=== PATIENT | female | born 1960 | race Caucasian/White ===

== ENCOUNTER 2022-12-10 14:49 | Inpatient (IN) | payer OTHER ==
[~2022-12-10] VITALS: Ht 162.6 cm; Wt 56.7 kg
[2022-12-10] VITALS (7 sets, daily range): BP systolic 138–171; BP diastolic 71–83
[2022-12-10] MEDS: NACL 0.9% 1,000 ML IV SCH (00:30)
[2022-12-10] MEDS ORDERED: NACL 0.9% 1,000 ML IV ONE ×2 (15:10→16:20)
[2022-12-10] MEDS ORDERED: PANTOPRAZOLE 40 MG INJ VIAL IVP ONE (15:10)
[2022-12-10 15:34] LABS: BASOPHILS # (AUTO) 0.1 K/uL (0.00-0.22); BASOPHILS % (AUTO) 0.9 % (0.0-2.0); EOSINOPHILS # (AUTO) 0.3 K/uL (0-0.4); EOSINOPHILS % (AUTO) 2.5 % (0.0-4.0); HEMATOCRIT 21.6 % (36-48); HEMOGLOBIN 7.3 g/dL (12.0-16.0); LYMPHOCYTES % (AUTO) 19.6 % (20.5-51.1); MEAN CORPUSCULAR HEMOGLOBIN 30 pg (27-31); MEAN CORPUSCULAR HGB CONC 34 g/dL (33-37); MEAN CORPUSCULAR VOLUME 88.5 fL (80-94); MONOCYTES # (AUTO) 0.6 K/uL (0.8-1.0); NEUTROPHILS # (AUTO) 7.4 K/uL (1.8-7.7); PLATELET COUNT (AUTO) 77 K/uL (140-450); RED BLOOD CELL COUNT(AUTO) 2.44 MIL/uL (4.20-5.40); RED CELL DISTRIBUTION WIDTH 15.6 % (11.6-13.7); WHITE BLOOD COUNT (AUTO) 10.4 K/uL (4.8-10.8)
[2022-12-10] MEDS ORDERED: ONDANSETRON 4 MG/2 ML VIAL IVP ONE (16:20)
[2022-12-10 16:38] LABS: ALBUMIN 2.6 g/dL (3.4-5.0); ANION GAP 16.1 (8-16); CARBON DIOXIDE 21.6 mmol/L (21-32); CREATININE 0.9 mg/dL (0.6-1.3); POTASSIUM 3.7 mmol/L (3.5-5.1); TOTAL BILIRUBIN 0.3 mg/dL (0.0-1.0)
--- NOTE | 2022-12-10 16:46 | NUR ---
XRAY AT BEDSIDE
--- NOTE | 2022-12-10 17:00 | NUR ---
DR GARCIA AT TO DISCUSS PLAN OF CARE, TEST RESULT, I ADMISSION AND NEEDS OF BLOOD TRANSFUSION, PT VERB GOOD UNDERSTANDING AGREED AGREED TO PROCEED
--- NOTE | 2022-12-10 17:00 | NUR ---
RISK AND BENEFITS DISCUSS BY MD WITH PT, BVERB GOOD UNDERSTANDING AGREED TO PROCEED
--- NOTE | 2022-12-10 17:25 | NUR ---
AGREED TO CONSENT FOR BLOOD TRANSFUSION. MADE AWARE OF COMPLICATIONS THAT MAY ARISE. FAMILY "SON" HAS BEEN CONTACTED. VITALS WITHIN NORMAL LIMITS
--- NOTE | 2022-12-10 17:30 | NUR ---
BLOOD CHECKED WITH SHANNAN HINES, S/SX TRANSFUSION REACTION DISCUSSED, ADVISED PT TO REPORT ANY UNUSUAL SX WITH TRANSFUSION, PT VERB UNDERSTANDING.
[2022-12-10] MEDS ORDERED: ACETAMINOPHEN 325 MG TAB PO PRN (17:40)
[2022-12-10] MEDS ORDERED: HYDROcodone/APAP 7.5/325 MG 1 TAB PO PRN (17:40)
[2022-12-10] MEDS ORDERED: ZOLPIDEM 5 MG TAB PO PRN (17:40)
[2022-12-10] MEDS ORDERED: DOCUSATE SODIUM 100 MG GELCAP PO PRN (17:40)
[2022-12-10] MEDS ORDERED: POTASSIUM CHLORIDE 10 MEQ TABER PO PRN (17:40)
[2022-12-10] MEDS ORDERED: guaiFENesin DM 200/20 MG-10 ML 10 ML UDC PO PRN (17:40)
[2022-12-10 18:03] LABS: AMYLASE 49 U/L (25-115)
--- NOTE | 2022-12-10 18:13 | NUR ---
GAMRSACG=[id number], DR GARCIA MADE AWARE, NO NEW ORDER RECEIVED
--- NOTE | 2022-12-10 18:20 | NUR ---
UPON ARRIVAL PT HAD ONE BLOODY STOOL@1500. PREPARATION OF BLOOD TRANSFUSION WAS BEING DONE AND PT HAD ANOTHER BLOODY STOOL@ 1600 AND ANOTHER AT AROUND@1730
--- NOTE | 2022-12-10 18:21 | NUR ---
PER PATIENT, TAKES NO MEDICATION. MED REC COMPLETE.
--- NOTE | 2022-12-10 18:50 | NUR ---
Dr. Sosa called ICU and instructed RN to inform warehouse shipping receiving clerk to place pt. on in OR schedule for ENDOSCOPY at 0730 am 12-11-22. Also, RN needs to have pt. sign informed consent for endoscopy in AM. This RN called warehouse shipping receiving clerk Ever and informed him of the above. He will schedule pt. for OR in am. Report endorsed to night RN, sprinkler tender Candace
--- NOTE | 2022-12-10 19:00 | NUR ---
Received call from Dr. Alford. requested stat ECG and stat Troponin. He also ordered Dr. Hanson notified about cardiology consultation and for ECG be sent to Dr. Hanson.
--- NOTE | 2022-12-10 19:05 | NUR ---
PT TRANSFERED TO ICU BED 1. TERESITA HEATH CALLED REPORT TO TERESITA CAVANAUGH
--- NOTE | 2022-12-10 19:14 | NUR ---
1913 Dr. Hanson sent consultation information, reported current troponin level, and texted picture of ECG. Done via secure text message.
--- NOTE | 2022-12-10 19:55 | NUR ---
I CALLED DR. HOOKS AND REPORTED PT. IS HERE IN ICU. WHEN I MENTIONED THAT PT. IS COVID POSITIVE, HE ASKED AGAIN IF PT. IS COVID POSITIVE AND I CONFIRMED. I ASKED IF WE CAN PLACE A VERA CATHETER AND HE'S OKAY WITH IT.
--- NOTE | 2022-12-10 20:33 | NUR ---
PLACED VERA CATHETER 16F PER MD ORDERED AND PT. TOLERATED PROCEDURE WELL. URINE OUTPUT CLEAR YELLOW COLOR.
[2022-12-10 21:41] LABS: APPEARANCE,URINE CLEAR (CLEAR); BILIRUBIN,URINE NEGATIVE (NEGATIVE); BLOOD, URINE NEGATIVE (NEGATIVE); COLOR,URINE YELLOW (YELLOW); LEUKOCYTE ESTERASE ,URINE NEGATIVE (NEGATIVE); NITRITE, URINE NEGATIVE (NEGATIVE); UGLUCOSE NEGATIVE (NEGATIVE)
[2022-12-10] MEDS ORDERED: OCTREOTIDE ACETATE 1.25 MG in NACL 0.9% 250 ML IV SCH (21:55)
[2022-12-10] MEDS ORDERED: OCTREOTIDE ACETATE 1000 MCG/5 ML VIAL ONE (22:12)
[2022-12-10] MEDS: ONDANSETRON 4 MG/2 ML VIAL IM/IVP PRN (22:34)
[2022-12-11] VITALS (20 sets, daily range): BP systolic 133–175; BP diastolic 61–86
--- NOTE | 2022-12-11 01:43 | NUR ---
1900--RECEIVED FROM ER PER JOYCE ACCOMPANIED BY ER NURSE. MADE COMFORTABLE IN BED AND ATTACHED TO BEDSIDE MONITORS, AFEBRILE AND NO RESP DISTRESS . ON ROOM AIR AND SATURATION IS 100 % . BED IN LOW POSITION , COVD PRECAUTION
--- NOTE | 2022-12-11 01:51 | NUR ---
2000- VOMTIN BLOODY SECRETIONS IN SMALL AMOUNT AND HAVING BLLODY LIQUIDY STOOL IN SMALL AMT.
--- NOTE | 2022-12-11 01:53 | NUR ---
2030 - IST UNIT OF PRBC TRANSFUSING WITHOUT BL0OD REACTION
--- NOTE | 2022-12-11 01:55 | NUR ---
2100- VOMITING BLOODY SECRETIONS . ORAL Care done
--- NOTE | 2022-12-11 01:57 | NUR ---
2114- 2nd unit PRBC is transfusing without reaction
--- NOTE | 2022-12-11 02:14 | NUR ---
2229-DR. PRINGLE WAS VERIFIED ABOUT STARTING SANDOSTATIN DRIP ORDERED EARLIER BY JIMMIE OWUSU TO MORNING CHARGE NURSE BUT WAS NOT ORDERED BY AM SHIFT AND SHE ORDERED TO GIVE IT AND CARRIED OUT AD STARTED MCG/HR AT 5 ML /HR
--- NOTE | 2022-12-11 02:19 | NUR ---
0000- LESS BLOODY STOOLS AND VOMITING
--- NOTE | 2022-12-11 02:21 | NUR ---
0200.- NO C/O OF ABDOMIAL PAIN
--- NOTE | 2022-12-11 03:05 | NUR ---
COVID 19 ISOLATION MAINTAINED AND PT IS ASLEEP.
--- NOTE | 2022-12-11 03:29 | NUR ---
2230=(GI DOCTOR) WAS INFORMED TO EXPLAIN TO PT THE PROCEDURE BEFORE SHE SIGN THE CONSENT FOR UPPER ENDOSCOPY
--- NOTE | 2022-12-11 04:29 | NUR ---
0400=ON STAND C/O NAUSEA
[2022-12-11] MEDS: ONDANSETRON 4 MG/2 ML VIAL IM/IVP PRN (04:36)
--- NOTE | 2022-12-11 04:48 | NUR ---
0436-VOMITED HUGE AMT. . . OF BLOODY SECRETIONS WITH BLOOD CLOTS AND ZOFRAN 4 MG IVP GIVEN
[2022-12-11 05:06] LABS: BASOPHILS % (AUTO) 0.3 % (0.0-2.0); EOSINOPHILS % (AUTO) 0.1 % (0.0-4.0); HEMATOCRIT 25.3 % (36-48); HEMOGLOBIN 8.5 g/dL (12.0-16.0); LYMPHOCYTES # (AUTO) 2.4 K/uL (2.5-16.5); LYMPHOCYTES % (AUTO) 17.2 % (20.5-51.1); MEAN CORPUSCULAR HEMOGLOBIN 30 pg (27-31); MEAN CORPUSCULAR HGB CONC 34 g/dL (33-37); MONOCYTES # (AUTO) 0.7 K/uL (0.8-1.0); NEUTROPHILS % (AUTO) 77.4 % (42.2-75.2); PLATELET COUNT (AUTO) 95 K/uL (140-450); RED BLOOD CELL COUNT(AUTO) 2.87 MIL/uL (4.20-5.40); RED CELL DISTRIBUTION WIDTH 15.5 % (11.6-13.7); WHITE BLOOD COUNT (AUTO) 14.2 K/uL (4.8-10.8)
[2022-12-11 05:20] LABS: MAGNESIUM 1.8 mg/dL (1.8-2.4); PHOSPHORUS 4.7 mg/dL (2.5-4.9)
--- NOTE | 2022-12-11 05:44 | NUR ---
0535- DR MURDOCK WAS UPDATED WITH PTS. CONDITION AND REMINDED HIM OF OBTAINING CONSENT AFTER HE EXPLAINED THE PROCEDURE P
[2022-12-11 06:06] LABS: ANION GAP 18.5 (8-16); CARBON DIOXIDE 18.1 mmol/L (21-32); CREATININE 0.9 mg/dL (0.6-1.3); POTASSIUM 4.6 mmol/L (3.5-5.1)
--- NOTE | 2022-12-11 07:18 | NUR ---
ENDORSED PT TO DAYSHIFT NURSES SARIKA RN AND MARK RN FOR CONTINUITY OF CARE.
[2022-12-11] MEDS ORDERED: fentaNYL citrate 0.05 MG/ML VIAL ONE ×2 (07:24→15:44)
[2022-12-11] MEDS ORDERED: MIDAZOLAM 2 MG/2 ML VIAL ONE ×4 (07:24→16:24)
--- NOTE | 2022-12-11 07:30 | NUR ---
Received reposrt from Guido LO patient is diagnosed for acute GI bleed pt is alert and oriented x 4 verbally reposnsive able to move all ext without difficulty c/o of pain 3/10 abdomen for EGD procedure at 0730 keep NPO pt is SR oin the monitor 96HR on room air 100% O2 SAT BP 151/66 PT FOUND TO HAVE VOMITED MODERATE AMOUT OF BLOOD WITH CLOTS AND HAVE LARGE AMOUNT OF BLOODY BM WITH CLOTS PT ON IVF NS AT 60 ML/HR AND OCREATIDE AT 5ML/HR PT HAS VERA CATHETER DAIING YELLOW URINE SAFETY PRECAUTION APPLIED AND CONITNUE MONITORING
[2022-12-11] MEDS ORDERED: FLUMAZENIL 0.5 MG/5 ML VIAL IVP ONE ×2 (07:34→15:44)
[2022-12-11] MEDS ORDERED: NALOXONE 0.4 MG/ML VIAL ONE ×2 (07:35→15:43)
--- NOTE | 2022-12-11 07:40 | NUR ---
PER GI NURSES AND DR. MURDOCK, ENDOSCOPY PROCEDURE WILL BE POSTPONED UNTIL THIS AFTERNOON.
--- NOTE | 2022-12-11 08:06 | NUR ---
PT. WITH LOW JEN SCALE AT MODERATE TO HIGH RISK, CONTINUE TO FOLLOW PRESSURE INJURY PREVENTION INTERVENTIONS. -POSITIONING: TURN AND REPOSITION PATIENT Q 2H OR SOONER USE PILLOWS TO KEEP BONY PROMINENCES FROM DIRECT CONTACT WITH SURFACES USE REPOSITIONING WEDGES TO PROVIDE 30-DEGREE ANGLE FOR SIDE LYING POSITIONS OFFLOADING OR FOAM DRESSING TO ALL TUBING TO PREVENT MEDICAL DEVICES RELATED PRESSURE INJURY -RE-EVALUATING AND MANAGING INCONTINENCE MONITOR SKIN CONDITION DURING POSITION CHANGE DO NOT MASSAGE REDNESS, BONY PROMINENCES FREQUENT TAMIR-CARE AND PROVIDE BARRIER CREAMS PRN IF SOILING MOISTURE CONTROL BY OFFER BED GIPSON/URINAL /ABSORBENT PAD TO WICK AND HOLD MOISTURE KEEP SKIN DRY AND PROTECT FROM FRICTION -MANAGE FRICTION/SHEAR/MOBILITY KEEP HOB AT THE LOWEST LEVEL OF ELEVATION NO MORE THAN 30 DEGREE UNLESS OTHERWISE CONTRAINDICATED USE LIFT SHEET OR TRANSFER DEVICE TO MOVE PATIENT AND PREVENT LATERAL SHEER. PROTECT HEELS, ELBOWS BONY PROMINENCES WITH SKIN BERRIES OR FOAM DRESSING IF EXPOSED TO FRICTION OFFLOAD BILATERAL HEELS BY PLACING PILLOWS UNDER CALVES AT ALL TIMES, UNLESS OTHERWISE CONTRAINDICATED -PRESSURE REDISTRIBUTION SURFACE THERAPY CAROLINE ISOFLEX MATTRESS -NUTRITION: PLEASE FOLLOW RD RECOMMENDATIONS AND OFFER NUTRITION SUPPLEMENTS IF ORDERED. PLEASE CONTACT WOUND CARE NURSE FOR ANY QUESTION AND CHANGE OF WOUND CONDITION.
[2022-12-11] MEDS ORDERED: PANTOPRAZOLE 40 MG INJ VIAL IVP ONE (09:00)
--- NOTE | 2022-12-11 09:10 | NUR ---
PATIENT HAS BEEN SCREENED AND CATEGORIZED HIGH NUTRITION RISK. PATIENT WILL BE SEEN WITHIN 1-2 DAYS OF ADMISSION. 12/11/22-12/12/[address]
--- NOTE | 2022-12-11 09:14 | NUR ---
DR. MILAN AWARE OF GI BLEED EPISODE OF VOMITNG AND BM LARGE AMOUNT BLOODY TARRY WITH CLOTS PT ROYER HAVE EGD AT 1430PM LATEST HGB IS 8.5 S/P 2 UNIT PRBC NEW ORDER FOR H&h STAT AND 1 UNIT PRBC GIVEN.
[2022-12-11 09:50] LABS: HEMATOCRIT 25.8 % (36-48); HEMOGLOBIN 8.6 g/dL (12.0-16.0)
[2022-12-11] MEDS: PANTOPRAZOLE 40 MG TABEC PO SCH (10:18)
[2022-12-11] MEDS: NACL 0.9% 1,000 ML IV SCH (10:57)
--- NOTE | 2022-12-11 13:44 | NUR ---
At 1040 BLOOD TRANSFUSION 1 INUTI PRBC STARTED STOP TIME IS 1309 VS WNL NO TRANSFUSION RECATION NOTED STILL HAS X2 BLOOD BM NO EPISODE OF VOMITNG.
--- NOTE | 2022-12-11 14:00 | NUR ---
DC PLANNING A 62 Y.O.FEMALE PATIENT ADMITTED FOR MELANOTIC STOOL WITH ANEMIA ,LOW PLATELET COUNT AND POSTURAL HYPOTENSION.HX OF HTN,HEMATEMESIS AND MELENA X 2 DAYS PRIOR TO ARRIVAL IN ED.HGB ON ADMISSION 7.3.HAD 2 UNITS PRBC..LATEST HGB 8.5.TO GET 1 MORE UNIT BEFORE EGD AT 2:30PM.CXR- NO ACUTE CARDIO-PULMONARY DISEASE.GI ON BOARD.CARDIO TO BE CONSULTED FOR HIGH TROPONIN LEVEL.PATIENT IS COVID (+).DC PLAN- HOME WHEN PATIENT RESPONDS TO TX.CM TO FOLLOW. Addendum: 12/12/22 at 1619 by ELIUD RESTREPO CM DC PLANNING PATIENT WAS TRANSFERRED TO TELEMETRY FROM ICU 12/11/22 AFTER UPPER EGD WAS DONE. 6 BANDS WERE APPLIED FOR MULTIPLE VARICES.CIRRHOSIS OF THE LIVER TO BE FOLLOWED UP AN OUTPATIEN.GI RECOMMENDS UPPER EGD EVRY 2 WEEKS UNTIL VARICES ARE GONE.PATIENT ON CONTACT ISOLATION FOR COVID (+).FOR POSSIBLE DC 12/13.CM TO FOLLOW. Addendum: 12/15/22 at 1415 by MARVIN KERNS RECEIVED ORDER FOR PATIENT TO GET HOME HEALTH FOR HOME SAFETY EVAL NURSING. FAXED ALL PAPERWORK TO [facility] AND [facility]. RECEIVED CALL FROM [facility] WHO IS ACCEPTING PATIENT. SPOKE WITH HARITHA FROM [facility] WHO IS FAXED OVER AUTH TO [facility]. CALLED JENIFFER MASCORRO WHO IS AWARE OF THE ABOVE INFORMATION.
--- NOTE | 2022-12-11 14:43 | NUR ---
12/11/22 RD INITIAL ASSESSMENT COMPLETED PLEASE REFER TO NUTRITION ASSESSMENT UNDER CARE ACTIVITY FOR ESTIMATED NUTRITIONAL NEEDS. 1.CONTINUE NPO DIET TOLERATED AND ADVANCE TO CLEAR LIQUID DIET ONCE MEDICALLY APPROPRIATE. 2.RD WILL CONTINUE TO MONITOR WEIGHTS, RELATED LABS, AND GI SYMPTOMS. 3. RD TO FOLLOW-UP 2-3 DAYS, HIGH RISK MAYELA MCCLENDON RD
[2022-12-11 15:42] LABS: HEMATOCRIT 31.4 % (36-48); HEMOGLOBIN 10.8 g/dL (12.0-16.0)
[2022-12-11] MEDS ORDERED: MIDAZOLAM 2 MG/2 ML VIAL IV ONE (15:58)
--- NOTE | 2022-12-11 16:23 | NUR ---
Fiberglass Dowel Drawing Operator This pt. is in ICU, Isolation for Covid, [place] Speaking. DIAGNOSTIC MEDICAL SONOGRAPHER attempted a few times to reach the emergency contact son, Guillermo Owens, but was told he not available as he is at work. DIAGNOSTIC MEDICAL SONOGRAPHER was unable to complete a Discharge Planning Assessment at this time. DIAGNOSTIC MEDICAL SONOGRAPHER alerted [employer] [employer].
--- NOTE | 2022-12-11 16:30 | NUR ---
DR. MURDOCK PERFORMED EGD AT BEDSIDE PER MD JJ Addendum: 12/11/22 at 1741 by SARIKA PEÑA RN PER DIAGNOSIS ESOPHAGEAL VARICES WITH 6 BANDS USED. PT TOLERATED PROCEDURE WELL CONTINUE TO MONITOR FOR POST PROCEDURE WITH MODERATE SEDATION GIVEN FOR EGD
[2022-12-11] MEDS ORDERED: MIDAZOLAM 2 MG/2 ML VIAL IVP ONE (16:45)
--- NOTE | 2022-12-11 18:40 | NUR ---
ENDORSED PT TO BETSEY RN ROOM 117 WITH V/S 1HR 107, ON 2 LMP 02 VIA NC O1 SAT 100% RR23 BP 169/76 PT S/P EGD ALERT AND ORIENTED ABLE TO VERBALIZED NEEDS TO C/O CHEST PAIN AND SOB ENDORSE PT HAVE A NEW ORDER FOR 1 UNIT OF BLOOT TRANSFUSION AND PT HAS CLEAR LIQUID DIET SAFTY PRECAUTION APPLIED CALL LIGHT WITHIN REACH BED IN LOWEST POSITION, HEART MONITOR PLACED AND WORKING.
--- NOTE | 2022-12-11 18:56 | NUR ---
ACCEPTED PT FROM ICU, GOT REPORT OBTAINED V.S PT ORIENTED THE HOSPAL ROOM. ISOLATION ROOM KALI IS UP. PT STABLE. [id number]
--- NOTE | 2022-12-11 19:35 | NUR ---
gave report to the night nurse, pt stable no sob no discomfort.[email or web address]
--- NOTE | 2022-12-11 19:40 | NUR ---
RECEIVED PATIENT FROM AM NURSE FOR CONTINUITY OF CARE. PATIENT IS STABLE
[2022-12-12] VITALS: BP 160/71
--- NOTE | 2022-12-12 01:00 | NUR ---
PATIENT ASLEEP, NO DISTRESS NOTED
[2022-12-12] MEDS: NACL 0.9% 1,000 ML IV SCH ×2 (03:00→17:46)
[2022-12-12 04:00] VITALS: BP 150/92
[2022-12-12 06:59] LABS: BASOPHILS % (AUTO) 0.3 % (0.0-2.0); EOSINOPHILS # (AUTO) 0.1 K/uL (0-0.4); EOSINOPHILS % (AUTO) 0.6 % (0.0-4.0); HEMATOCRIT 26.8 % (36-48); HEMOGLOBIN 9.1 g/dL (12.0-16.0); LYMPHOCYTES % (AUTO) 19.5 % (20.5-51.1); MEAN CORPUSCULAR HEMOGLOBIN 30 pg (27-31); MEAN CORPUSCULAR HGB CONC 34 g/dL (33-37); MEAN CORPUSCULAR VOLUME 87.8 fL (80-94); MONOCYTES # (AUTO) 1.1 K/uL (0.8-1.0); MONOCYTES % (AUTO) 7.2 % (1.7-9.3); NEUTROPHILS # (AUTO) 11.1 K/uL (1.8-7.7); NEUTROPHILS % (AUTO) 72.4 % (42.2-75.2); PLATELET COUNT (AUTO) 101 K/uL (140-450); RED BLOOD CELL COUNT(AUTO) 3.05 MIL/uL (4.20-5.40); RED CELL DISTRIBUTION WIDTH 15.4 % (11.6-13.7); WHITE BLOOD COUNT (AUTO) 15.4 K/uL (4.8-10.8)
[2022-12-12 07:08] LABS: ANION GAP 14.7 (8-16); CREATININE 1.2 mg/dL (0.6-1.3); POTASSIUM 4.7 mmol/L (3.5-5.1)
[2022-12-12 07:15] LABS: MAGNESIUM 1.9 mg/dL (1.8-2.4); PHOSPHORUS 3.3 mg/dL (2.5-4.9)
--- NOTE | 2022-12-12 07:15 | NUR ---
RECEIVED REPORT FROM NIGHT NURSE SCOT FOR CONTINUITY OF CARE. ALERT AND ORIENTED X 4. RESP. EVEN AND UNLABORED. RESP. EVEN AND UNLABORED. ON CONTINUOUS O2 @ 3L/NC. IVF INFUSING WELL. ON DROPLET PRECAUTION D/T POSITIVE COVID. F/C INTACT DRAINING YELLOW URINE. NO C/O PAIN OR DISCOMFORT. CALL LIGHT KEPT WITHIN REACH. PT WILL MONITOR CLOSELY.
--- NOTE | 2022-12-12 07:20 | NUR ---
ENDORSED PATIENT TO AM NURSE FOR CONTINUITY OF CARE. PT IS STABLE
[2022-12-12 08:00] VITALS: BP 149/68
[2022-12-12] MEDS: PANTOPRAZOLE 40 MG TABEC PO SCH (09:26)
--- NOTE | 2022-12-12 09:26 | NUR ---
SCHEDULED MEDICATION GIVEN. TOLERATED WELL.
[2022-12-12 12:00] VITALS: BP 158/58
--- NOTE | 2022-12-12 12:50 | NUR ---
RECEIVED CALLED FROM DR. MURDOCK. WITH NEW ORDERS: 2GMS SODIUM, CARDIAC DIET AND PROPRANOLOL 20 MG THREE TIMES A DAY. IF PT TOLERATED DIET. MAY FOLLOW UP WITH PCP. ORDERS NOTED AND CARRIED OUT.
--- NOTE | 2022-12-12 13:40 | NUR ---
INFORMED BY DISTILLERY MILLER DURING PT CARE, NOTED MEDIUM AMOUNT OF BLOOD. DR. MURDOCK NOTIFIED, CLARIFIED DIET. AWAITING FOR RESPONSE.
--- NOTE | 2022-12-12 15:22 | NUR ---
PER DR. MURDOCK ADVANCE DIET. NOTED AND CARRIED OUT.
[2022-12-12 16:00] VITALS: BP 139/45
[2022-12-12] MEDS: PROPRANOLOL 20 MG TAB PO SCH (17:40)
--- NOTE | 2022-12-12 17:40 | NUR ---
INDERAL PO WAS GIVEN. TOLERATED WELL.
--- NOTE | 2022-12-12 19:29 | NUR ---
BEDSIDE REPORT GIVEN TO NIGHT NURSE JA FOR CONTINUITY OF CARE. REMAINS STABLE.
--- NOTE | 2022-12-12 19:30 | NUR ---
RECEIVED REPORT FROM DAY SHIFT NURSE ALON FOR CONTINUITY OF CARE. PATIENT IS A&O X4, IRISH SPEAKING. PATIENT IS ON ROOM AIR, BREATHING IS NORMAL WITH SYMMETRICAL RISE AND FALL OF CHEST. IV IS A 22G LEFT HAND, RUNNING NS AT 60. PATIENT IS LYING COMFORTABLY IN BED IN SEMI-FOWLERS POSITION. BED IS IN LOWEST POSITION, WHEELS LOCKED, CALL LIGHT IN PLACE. WILL CONTINUE TO OBSERVE PATIENT.
[2022-12-12 20:00] VITALS: BP 129/53
[2022-12-13] VITALS: BP 107/36
--- NOTE | 2022-12-13 | NUR ---
PATIENT CALLED AND REQUESTED TO BE CHANGED. PATIENT HAD A BM AND WAS CLEANED AND CHANGED WITH THE ASSISTANCE OF DONNY PERES. STOOL WAS BLOODY. NEW DIAPER AND CHUCKS WERE APPLIED TO PATIENT. PATIENT WAS ABLE TO FOLLOW INSTRUCTIONS FOR SELF-TURNING. PATIENT'S BREATHING IS NORMAL WITH SYMMETRICAL RISE AND FALL OF CHEST. WILL CONTINUE TO OBSERVE PATIENT.
--- NOTE | 2022-12-13 01:00 | NUR ---
LOOKED IN ON PATIENT. PATIENT WAS SLEEPING. BREATHING WAS NORMAL WITH SYMMETRICAL RISE AND FALL OF CHEST. IV IS STILL RUNNING. BED IS IN LOWEST POSITION, WHEELS LOCKED, CALL LIGHT IN PLACE. WILL CONTINUE TO OBSERVE PATIENT.
[2022-12-13 04:00] VITALS: BP 117/45
--- NOTE | 2022-12-13 06:00 | NUR ---
PATIENT IS RESTING COMFORTABLY. BREATHING IS NORMAL WITH SYMMETRICAL RISE AND FALL OF CHEST. WILL ENDORSE CARE TO DAY SHIFT NURSE.
--- NOTE | 2022-12-13 07:25 | NUR ---
RECEIVED REPORT FROM NIGHT NURSE JA FOR CONTINUITY OF CARE. ALERT AND ORIENTED X 4. SKIN DRY AND WARM TO TOUCH. IVF INFUSING WELL. ON DROPLET PRECAUTION D/T POSITIVE COVID. F/C INTACT DRAINING YELLOW URINE. NO C/O PAIN OR DISCOMFORT. CALL LIGHT KEPT WITHIN REACH. PT WILL MONITOR CLOSELY.
[2022-12-13 07:29] LABS: BASOPHILS % (AUTO) 0.2 % (0.0-2.0); EOSINOPHILS # (AUTO) 0.1 K/uL (0-0.4); LYMPHOCYTES # (AUTO) 1.8 K/uL (2.5-16.5); LYMPHOCYTES % (AUTO) 17.2 % (20.5-51.1); MEAN CORPUSCULAR HEMOGLOBIN 31 pg (27-31); MEAN CORPUSCULAR HGB CONC 35 g/dL (33-37); MEAN CORPUSCULAR VOLUME 90.1 fL (80-94); MONOCYTES # (AUTO) 0.9 K/uL (0.8-1.0); MONOCYTES % (AUTO) 8.8 % (1.7-9.3); NEUTROPHILS # (AUTO) 7.7 K/uL (1.8-7.7); NEUTROPHILS % (AUTO) 72.8 % (42.2-75.2); PLATELET COUNT (AUTO) 58 K/uL (140-450); RED BLOOD CELL COUNT(AUTO) 2.08 MIL/uL (4.20-5.40); RED CELL DISTRIBUTION WIDTH 15.6 % (11.6-13.7); WHITE BLOOD COUNT (AUTO) 10.5 K/uL (4.8-10.8)
[2022-12-13 07:33] LABS: ANION GAP 9.1 (8-16); CARBON DIOXIDE 23.7 mmol/L (21-32); CREATININE 0.7 mg/dL (0.6-1.3); POTASSIUM 3.8 mmol/L (3.5-5.1)
--- NOTE | 2022-12-13 07:35 | NUR ---
ENDORSED TO DAY SHIFT NURSE ALON FOR CONTINUITY OF CARE. PATIENT IS STABLE.
--- NOTE | 2022-12-13 07:35 | NUR ---
RECEIVED CRITICAL LAB RESULTS: HGB 6.5, HCT 18.8. DR. PRIETO NOTIFIED, AWAITING FOR RESPONSE.
[2022-12-13 07:36] LABS: HEMATOCRIT 18.8 % (36-48); HEMOGLOBIN 6.5 g/dL (12.0-16.0)
[2022-12-13 07:37] LABS: MAGNESIUM 2.2 mg/dL (1.8-2.4); PHOSPHORUS 2.5 mg/dL (2.5-4.9)
--- NOTE | 2022-12-13 07:48 | NUR ---
RECEIVED NEW ORDER FROM DR. PRIETO, 1 PACKED RBC. ORDER NOTED AND CARRIED OUT.
[2022-12-13 08:00] VITALS: BP 114/41
[2022-12-13] MEDS: PANTOPRAZOLE 40 MG TABEC PO SCH (08:40)
--- NOTE | 2022-12-13 08:40 | NUR ---
SCHEDULED MEDICATIONS GIVEN. TOLERATED WELL.
[2022-12-13] MEDS: PROPRANOLOL 20 MG TAB PO SCH ×3 (08:41→17:00)
--- NOTE | 2022-12-13 09:25 | NUR ---
INFORMED BY BUYER GRAIN THAT DURING CARE, NOTED SMALL AMOUNT OF BLOOD.
--- NOTE | 2022-12-13 11:47 | NUR ---
BLOOD TRANSFUSION STARTED. VERIFIED WITH JESSICA LO. NO ADVERSE REACTION NOTED.
[2022-12-13 12:00] VITALS: BP 102/42
[2022-12-13] MEDS: NACL 0.9% 1,000 ML IV SCH (12:20)
--- NOTE | 2022-12-13 13:11 | NUR ---
INDERAL PO ON HOLD D/T LOW BLOOD PRESSURE.
--- NOTE | 2022-12-13 14:40 | NUR ---
BLOOD TRANSFUSION COMPLETED. NO ADVERSE REACTION NOTED.
--- NOTE | 2022-12-13 15:00 | NUR ---
12/13/22 RD FOLLOW UP COMPLETED PLEASE REFER TO NUTRITION ASSESSMENT UNDER CARE ACTIVITY FOR ESTIMATED NUTRITIONAL NEEDS. 1. CONTINUE ON CARDIAC DIET TOLERATED 2. RD RECOMMENDS BANATROL 1-2 TIMES A DAY FOR LOOSE STOOLS. PLEASE DISCONTINUE ONCE PATIENT NO LONGER HAS LOOSE STOOLS. 3. RD TO FOLLOW-UP 3-5 DAYS, MODERATE RISK MAYELA MCCLENDON RD
[2022-12-13 16:00] VITALS: BP 100/42
--- NOTE | 2022-12-13 17:20 | NUR ---
INDERAL PO ON HOLD D/T LOW BLOOD PRESSURE.
--- NOTE | 2022-12-13 18:00 | NUR ---
INFORMED BY FINISH PRODUCTION MANAGER WHILE DURING CARE, NOTED BM WITH SMALL OF BLOOD. NO C/O DIZZINESS. PT WILL MONITOR CLOSELY.
--- NOTE | 2022-12-13 19:20 | NUR ---
BEDSIDE REPORT GIVEN TO NIGHT NURSE JA FOR CONTINUITY OF CARE. REMAINS STABLE.
--- NOTE | 2022-12-13 19:30 | NUR ---
RECEIVED REPORT FROM DAY SHIFT NURSE ALON FOR CONTINUITY OF CARE. PATIENT IS A&O X4, COOK ISLANDER SPEAKING. PATIENT IS ON ROOM AIR, BREATHING IS NORMAL WITH SYMMETRICAL RISE AND FALL OF CHEST. IV IS A 22G LEFT HAND, RUNNING NS AT 60. PATIENT IS LYING COMFORTABLY IN BED IN SEMI-FOWLERS POSITION, VISITING WITH SON WHO IS AT BEDSIDE. BED IS IN LOWEST POSITION, WHEELS LOCKED, CALL LIGHT IN PLACE. WILL CONTINUE TO OBSERVE PATIENT.
[2022-12-13 20:00] VITALS: BP 102/42
[2022-12-14] VITALS: BP 116/45
--- NOTE | 2022-12-14 01:00 | NUR ---
LOOKED IN ON PATIENT. PATIENT WAS SLEEPING, LYING COMFORTABLY IN SEMI-FOWLERS POSITION. IV IS STILL RUNNING. BREATHING IS NORMAL WITH SYMMETRICAL RISE AND FALL OF CHEST. WILL CONTINUE TO OBSERVE PATIENT.
[2022-12-14 04:00] VITALS: BP 91/35
[2022-12-14] MEDS: NACL 0.9% 1,000 ML IV SCH ×2 (05:00→21:40)
--- NOTE | 2022-12-14 05:00 | NUR ---
LOOKED IN ON PATIENT. PATIENT WAS SLEEPING. OBTAINED PATIENT'S VITALS AND EMPTIED CATHETER BAG, 360ML. URINE WAS DARK ISABELLE IN COLOR. PATIENT WOKE UP, ASKED PATIENT IF SHE HAD ANY BM; PATIENT STATED NO. IV IS STILL RUNNING. WILL CONTINUE TO OBSERVE PATIENT.
[2022-12-14 06:51] LABS: ANION GAP 11.2 (8-16); CARBON DIOXIDE 22.4 mmol/L (21-32); CREATININE 0.7 mg/dL (0.6-1.3); POTASSIUM 3.6 mmol/L (3.5-5.1)
[2022-12-14 06:53] LABS: MAGNESIUM 2.1 mg/dL (1.8-2.4); PHOSPHORUS 2.6 mg/dL (2.5-4.9)
[2022-12-14 06:58] LABS: BASOPHILS % (AUTO) 0.3 % (0.0-2.0); EOSINOPHILS # (AUTO) 0.1 K/uL (0-0.4); EOSINOPHILS % (AUTO) 1.8 % (0.0-4.0); HEMATOCRIT 24.5 % (36-48); HEMOGLOBIN 8.5 g/dL (12.0-16.0); LYMPHOCYTES # (AUTO) 1.7 K/uL (2.5-16.5); MEAN CORPUSCULAR HEMOGLOBIN 32 pg (27-31); MEAN CORPUSCULAR HGB CONC 35 g/dL (33-37); MEAN CORPUSCULAR VOLUME 91.9 fL (80-94); MONOCYTES # (AUTO) 0.5 K/uL (0.8-1.0); MONOCYTES % (AUTO) 7.1 % (1.7-9.3); NEUTROPHILS # (AUTO) 4.8 K/uL (1.8-7.7); NEUTROPHILS % (AUTO) 66.8 % (42.2-75.2); PLATELET COUNT (AUTO) 49 K/uL (140-450); RED BLOOD CELL COUNT(AUTO) 2.67 MIL/uL (4.20-5.40); RED CELL DISTRIBUTION WIDTH 15.6 % (11.6-13.7); WHITE BLOOD COUNT (AUTO) 7.2 K/uL (4.8-10.8)
--- NOTE | 2022-12-14 07:06 | NUR ---
receive the patient from the net manager taylor Parks in 117 [id number] with admitting diagnosis of gastro intestinal bleeding . on droplet isolation for Covid 19 . hemoglobin of 8.5 . on room air . no signs and symptoms of respiratory distress . will continue to monitor .
--- NOTE | 2022-12-14 07:39 | NUR ---
ENDORSED TO DAY SHIFT NURSE JOLENE FOR CONTINUITY OF CARE. PATIENT IS STABLE.
[2022-12-14 08:00] VITALS: BP 117/69
[2022-12-14] MEDS: PROPRANOLOL 20 MG TAB PO SCH ×3 (08:34→17:21)
[2022-12-14] MEDS: PANTOPRAZOLE 40 MG TABEC PO SCH (08:34)
--- NOTE | 2022-12-14 11:30 | NUR ---
patient was transfer to medical surgical unit
[2022-12-14 12:00] VITALS: BP 112/74
--- NOTE | 2022-12-14 15:44 | NUR ---
P.T. NOTES P.T. EVAL COMPLETED; REFER TO EVAL FOR DETAILS.
[2022-12-14 16:00] VITALS: BP 111/60
--- NOTE | 2022-12-14 18:44 | NUR ---
will endorse to shift superintendent rn for continuity of care . still on droplet isolation for Covid 19 postive . will monitor hemoglobin level for gastro intestinal bleeding
--- NOTE | 2022-12-14 19:30 | NUR ---
RECEIVED REPORT FROM DAY SHIFT NURSE JOLENE FOR CONTINUITY OF CARE. PATIENT IS A&O X4, KOREAN SPEAKING. PATIENT IS ON ROOM AIR, BREATHING IS NORMAL WITH SYMMETRICAL RISE AND FALL OF CHEST. IV IS A 22G LEFT HAND, RUNNING NS AT 60. PATIENT IS LYING COMFORTABLY IN BED IN SEMI-FOWLERS POSITION. BED IS IN LOWEST POSITION, WHEELS LOCKED, CALL LIGHT IN PLACE. WILL CONTINUE TO OBSERVE PATIENT.
[2022-12-14 20:00] VITALS: BP 106/41
--- NOTE | 2022-12-15 01:30 | NUR ---
LOOKED IN ON PATIENT. PATIENT HAS BEEN SLEEPING COMFORTABLY, LYING SEMI-FOWLERS POSITION. BREATHING IS NORMAL WITH SYMMETRICAL RISE AND FALL OF CHEST. IV IS STILL RUNNING NS AT 60. WILL CONTINUE TO OBSERVE PATIENT.
[2022-12-15] MEDS: NACL 0.9% 1,000 ML IV SCH (02:40)
[2022-12-15 04:00] VITALS: BP 107/37
--- NOTE | 2022-12-15 05:00 | NUR ---
PATIENT INFORMED ME THAT SHE AMBULATED TO BATHROOM INDEPENDENTLY AND HAD A BM LAST NIGHT. EMPTIED CATHETER BAG 350 ML. PATIENT'S BREATHING WAS NORMAL WITH SYMMETRICAL RISE AND FALL OF CHEST. WILL CONTINUE TO OBSERVE PATIENT.
[2022-12-15 06:49] LABS: BASOPHILS % (AUTO) 0.4 % (0.0-2.0); EOSINOPHILS # (AUTO) 0.3 K/uL (0-0.4); EOSINOPHILS % (AUTO) 3.4 % (0.0-4.0); HEMATOCRIT 26.8 % (36-48); HEMOGLOBIN 8.8 g/dL (12.0-16.0); LYMPHOCYTES # (AUTO) 1.9 K/uL (2.5-16.5); LYMPHOCYTES % (AUTO) 24.6 % (20.5-51.1); MEAN CORPUSCULAR HEMOGLOBIN 30 pg (27-31); MEAN CORPUSCULAR HGB CONC 33 g/dL (33-37); MEAN CORPUSCULAR VOLUME 90.9 fL (80-94); MONOCYTES # (AUTO) 0.6 K/uL (0.8-1.0); MONOCYTES % (AUTO) 7.8 % (1.7-9.3); NEUTROPHILS # (AUTO) 4.9 K/uL (1.8-7.7); NEUTROPHILS % (AUTO) 63.8 % (42.2-75.2); PLATELET COUNT (AUTO) 76 K/uL (140-450); RED BLOOD CELL COUNT(AUTO) 2.95 MIL/uL (4.20-5.40); RED CELL DISTRIBUTION WIDTH 16.2 % (11.6-13.7); WHITE BLOOD COUNT (AUTO) 7.8 K/uL (4.8-10.8)
--- NOTE | 2022-12-15 07:31 | NUR ---
ENDORSED TO DAY SHIFT NURSE JOLENE FOR CONTINUITY OF CARE. PATIENT IS STABLE.
[2022-12-15 07:33] LABS: ANION GAP 10.5 (8-16); CARBON DIOXIDE 23.4 mmol/L (21-32); CREATININE 0.7 mg/dL (0.6-1.3); POTASSIUM 3.9 mmol/L (3.5-5.1)
[2022-12-15 07:36] LABS: MAGNESIUM 1.9 mg/dL (1.8-2.4); PHOSPHORUS 3.2 mg/dL (2.5-4.9)
[2022-12-15 08:00] VITALS: BP 138/49
[2022-12-15] MEDS: PROPRANOLOL 20 MG TAB PO SCH ×2 (09:01→18:12)
[2022-12-15] MEDS: PANTOPRAZOLE 40 MG TABEC PO SCH (09:01)
[2022-12-15] MEDS ORDERED: PROP20TA29 PO (11:20)
[2022-12-15] MEDS ORDERED: PANT40EC56 PO (11:20)
[2022-12-15 16:00] VITALS: BP 138/49
[2022-12-15 16:17] VITALS: BP 128/78
--- NOTE | 2022-12-15 18:27 | NUR ---
patient was discharge in a stable condition to the lobby with the son on a private car
== END 2022-12-15 18:40 | disposition home or self-care (01) | DRG 432 ==
LOC: EDBD 14:49 → MED 14:49 → MTU 17:44 → MIC 19:36 → MTU 12-11 18:37
PROVIDERS: ADMIT Student in an Organized Health Care Education/Training Program; ATTEND Student in an Organized Health Care Education/Training Program
PROC: 30233N1 Transfusion of Nonautologous Red Blood Cells into Peripheral Vein, Percutaneous Approach (ICD-10-PCS; 2022-12-11)
PROC: 06L38CZ Occlusion of Esophageal Vein with Extraluminal Device, Via Natural or Artificial Opening Endoscopic (ICD-10-PCS; principal; 2022-12-11 06:30)
DX: K74.60 Unspecified cirrhosis of liver (principal); E43 Unspecified severe protein-calorie malnutrition; I85.11 Secondary esophageal varices with bleeding; U07.1 COVID-19; D62 Acute posthemorrhagic anemia; Z90.710 Acquired absence of both cervix and uterus; I95.1 Orthostatic hypotension; I10 Essential (primary) hypertension; D69.6 Thrombocytopenia, unspecified; E83.51 Hypocalcemia; D64.9 Anemia, unspecified; Z68.21 Body mass index [BMI] 21.0-21.9, adult
CPT/HCPCS: 36415; 36430; 71045; 80048; 80053; 81003; 82150; 83690; 83735; 84100; 84484; 85018; 85025; 85610; 85730; 86886; 86900; 86901; 86920; 87081; 93005; 96374; 97116; 97163-GP; 99291; C9113; J2250; J2310; J2354; J2405; J3010; J3490; J7030; P9016; Q0092

== ENCOUNTER 2023-01-09 12:04 | Emergency (ER) | payer OTHER ==
[~2023-01-09] VITALS: Ht 137.2 cm; Wt 54.4 kg
[~2023-01-09 12:04] MED LIST: PANT40EC56 PO; PROP20TA29 PO
[2023-01-09 12:14] VITALS: BP 152/78; PULSE 67; RESP 16; TEMP 97.9; O2SAT 97
--- NOTE | 2023-01-09 12:19 | NUR ---
pt ambulatory to bed 02 Addendum: 01/09/23 at 1223 by [id number] CORRECTION PT TO BED 01
[2023-01-09 13:01] VITALS: O2SAT 97
--- NOTE | 2023-01-09 13:02 | NUR ---
AMBULATES WITH STEADY GAIT, INDEPENDENT
[2023-01-09 13:20] LABS: BASOPHILS % (AUTO) 1.2 % (0.0-2.0); EOSINOPHILS # (AUTO) 0.1 K/uL (0-0.4); EOSINOPHILS % (AUTO) 2.9 % (0.0-4.0); HEMATOCRIT 26.7 % (36-48); HEMOGLOBIN 8.6 g/dL (12.0-16.0); LYMPHOCYTES # (AUTO) 0.9 K/uL (2.5-16.5); LYMPHOCYTES % (AUTO) 27.9 % (20.5-51.1); MEAN CORPUSCULAR HEMOGLOBIN 27 pg (27-31); MEAN CORPUSCULAR HGB CONC 32 g/dL (33-37); MEAN CORPUSCULAR VOLUME 82.9 fL (80-94); MONOCYTES # (AUTO) 0.3 K/uL (0.8-1.0); PLATELET COUNT (AUTO) 68 K/uL (140-450); RED BLOOD CELL COUNT(AUTO) 3.23 MIL/uL (4.20-5.40); RED CELL DISTRIBUTION WIDTH 16.7 % (11.6-13.7); WHITE BLOOD COUNT (AUTO) 3.4 K/uL (4.8-10.8)
[2023-01-09 13:37] LABS: ALBUMIN 2.6 g/dL (3.4-5.0); ANION GAP 11.7 (8-16); CARBON DIOXIDE 25.4 mmol/L (21-32); CREATININE 0.8 mg/dL (0.6-1.3); POTASSIUM 4.1 mmol/L (3.5-5.1); TOTAL BILIRUBIN 0.3 mg/dL (0.0-1.0)
--- NOTE | 2023-01-09 15:03 | NUR ---
Patient discharged with v/s stable. Written and verbal after care instructions given and explained. Patient verbalized understanding. Ambulatory with steady gait. All questions addressed prior to discharge. Advised to follow up with PMD.
== END 2023-01-09 15:03 | disposition home or self-care (01) ==
LOC: MED 12:04
DX: D64.9 Anemia, unspecified (principal); I10 Essential (primary) hypertension; Z79.899 Other long term (current) drug therapy
CPT/HCPCS: 36415; 80053; 85025; 86886; 86900; 86901; 99283

== ENCOUNTER 2023-01-29 10:53 | Day surgery (SDC) | payer OTHER ==
[~2023-01-29] VITALS: Ht 147.3 cm; Wt 57.6 kg
[2023-01-29] MEDS ORDERED: diphenhydrAMINE 50 MG/ML VIAL ONE (11:46)
[2023-01-29] MEDS ORDERED: fentaNYL citrate 0.05 MG/ML VIAL ONE (11:47)
[2023-01-29] MEDS ORDERED: MIDAZOLAM 2 MG/2 ML VIAL ONE (11:47)
[2023-01-29] MEDS ORDERED: fentaNYL citrate 0.05 MG/ML VIAL IVP ONE (14:00)
[2023-01-29] MEDS ORDERED: MIDAZOLAM 2 MG/2 ML VIAL IVP ONE (14:00)
== END 2023-01-29 13:21 | disposition home or self-care (01) ==
LOC: MOR 10:53 → MMU 10:54 → MOR 13:21
PROVIDERS: ATTEND Internal Medicine Gastroenterology
DX: K76.6 Portal hypertension (principal); I85.11 Secondary esophageal varices with bleeding; I10 Essential (primary) hypertension; Z79.899 Other long term (current) drug therapy
CPT/HCPCS: 43244; J2250; J3010; J1200